=== PATIENT | male | born 1945 | race Caucasian/White ===

== ENCOUNTER 2017-02-02 05:34 | Inpatient (IN) | payer OTHER ==
[2017-01-13 11:52] VITALS: BMI 32.0
--- NOTE | 2017-01-13 12:22 | PAT Medication Instructions ---
Service Date Jan 13, 2017. Current Home Medication List Ascorbic Acid (Vitamin C), 1,000 MG PO QAM Aspirin (Aspirin Ec), 81 MG PO QAM Calcium/Vitamin D (Os-Audi 500 Plus D), 1 TAB PO QAM Cholecalciferol (Vitamin D3), 1 TAB PO QAM Multivitamin (Multivitamin), 1 TAB PO QAM Simvastatin (Zocor), 40 MG PO QAM Medication Instructions For Your Scheduled Surgery - Hold the following medications the morning of surgery: Calcium/Vitamin D (Os-Audi 500 Plus D), 1 TAB PO QAM Cholecalciferol (Vitamin D3), 1 TAB PO QAM Multivitamin (Multivitamin), 1 TAB PO QAM Ascorbic Acid (Vitamin C), 1,000 MG PO QAM - Take the following medications the morning of surgery with a sip of water: Aspirin (Aspirin Ec), 81 MG PO QAM (okay to continue per surgeon) Simvastatin (Zocor), 40 MG PO QAM If you have any questions please call us at [phone] or [phone] or [phone]
[2017-01-13 12:48] LABS: BASO % 0.4 %; BASO ABS # 0.03 K/uL (0-0.2); COMPLETE YES; HEMATOCRIT 41.4 % (42-52); IG% 0.3 %; LYMPH % 24.3 %; LYMPH ABS # 1.94 K/uL (1.2-3.4); MEAN CELL VOLUME 88.8 fL (80-100); MEAN CORPUSCULAR HEMOGLOBIN 31.8 pg (25-34); MEAN CORPUSCULAR HGB CONC 35.7 g/dl (32-36); PLATELET COUNT 196 K/uL (130-400); RED BLOOD COUNT 4.66 M/uL (4.7-6.1); WHITE BLOOD COUNT 7.97 K/uL (4.8-10.8)
[2017-01-13 12:51] LABS: MANUAL MICROSCOPIC REQUIRED? NO; REVIEW REQ? NO; URINE APPEARANCE CLOUDY (CLEAR); URINE BILIRUBIN NEG (NEG); URINE COLOR YELLOW; URINE EPITHELIAL CELL AUTO 0-5 /lpf (0-5); URINE NITRITE NEG (NEG); URINE PH 7.5 (4.5-7.5); URINE SPECIFIC GRAVITY 1.022 (1.000-1.030); UROBILINOGEN NEG (NEG); ZZUR CULT IF INDIC CLEAN CATCH NO
--- NOTE | 2017-01-13 12:52 | DIAGNOSTIC IMAGING REPORT ---
CHEST 2 VIEWS ROUTINE CLINICAL HISTORY: 71 years-old Male presenting with preoperative assessment. TECHNIQUE: PA and lateral views of the chest were obtained. COMPARISON: None. FINDINGS: Cardiomediastinal silhouette normal. Lungs and pleural spaces clear. Degenerative changes of the spine. Upper abdomen normal. IMPRESSION: 1. No acute cardiopulmonary disease. Electronically signed by: Wilian Thorne M.D. 01/13/2017 12:50 PM Dictated Date/Time: 01/13/2017 12:50 PM
[2017-01-13 12:59] LABS: PARTIAL THROMBOPLASTIN RATIO 1.1; PROTHROMBIN TIME (PATIENT) 11.2 SECONDS (9.0-12.0)
[2017-01-13 13:04] LABS: ESTIMATED AVERAGE GLUCOSE 123 mg/dl; HA1C FLAG Normal (Normal)
[2017-01-13 13:44] LABS: BUN/CREATININE RATIO 20.1 (10-20); CALCIUM 9.1 mg/dl (8.5-10.1); CREATININE 0.96 mg/dl (0.60-1.40); POTASSIUM 4.2 mmol/L (3.5-5.1)
--- NOTE | 2017-02-01 12:05 | HISTORY & PHYSICAL EXAMINATION ---
DATE OF ADMISSION: 02/02/2017 CHIEF COMPLAINT: Right knee pain. HISTORY OF PRESENT ILLNESS: The patient is a 71-year-old male with known osteoarthritis about his right knee. He has had previous corticosteroid as well as viscosupplementation injections. He continues to have significant pain and disability with activities of daily living and now desires to proceed with right total knee arthroplasty. PAST MEDICAL HISTORY: Hypercholesterolemia, osteoarthritis, kidney stones. PAST SURGICAL HISTORY: Appendectomy, tonsillectomy, colonoscopy x2, cataract surgery, fibula surgery. MEDICATIONS: Simvastatin 40 mg daily, aspirin 81 mg daily, multivitamin daily, calcium plus D daily, vitamin C with naomy hips daily, Vitamin D3 1000 International Units daily. ALLERGIES: No known drug allergies. SOCIAL HISTORY AND REVIEW OF SYSTEMS: Noncontributory. PHYSICAL EXAMINATION: GENERAL: Well-nourished, well-developed male who appears his stated age. HEENT: Normocephalic, atraumatic, extraocular movements intact, oropharynx pink and moist. NECK: Supple without adenopathy. LUNGS: Clear to auscultation bilaterally. HEART: Regular rate and rhythm. ABDOMEN: Soft, nontender, nondistended. EXTREMITIES: The upper extremities are within normal limits. The right knee has a slight varus alignment. He complains primarily of medial compartment pain. He has range of motion from 0 to 125 degrees. He has mild crepitus with range of motion. X-RAYS: X-rays were reviewed. He has a varus aligned knee. He has near bone on bone arthritis of the medial compartment with medial osteophytes. He has mild osteophyte formation about the patellofemoral joint. ASSESSMENT: Right knee degenerative joint disease. PLAN: Risks versus benefits were discussed. Consent was obtained. The patient's primary care physician is Dr. Griffin from [place]. We will proceed with right total knee arthroplasty upon preoperative workup and medical clearance.
[~2017-02-02] VITALS: Ht 177.8 cm; Wt 100.6 kg
[2017-02-02] VITALS (9 sets, daily range): BP systolic 107–141; BP diastolic 65–76; PULSE 59–90; TEMP 36.5–36.7; O2SAT 93–99; Ht 177.8 cm; Wt 100.6 kg
[~2017-02-02 05:34] MED LIST: ASCA500 PO; ASPI81TA28 PO; CALC500C70 PO; MULT-506 PO; SIMV40TA2 PO; VTMD1000 PO
[2017-02-02] MEDS ORDERED: FAMOTIDINE 20 MG TAB PO SCH (06:00)
[2017-02-02] MEDS ORDERED: CeleBREX 200 MG CAP PO SCH (06:00)
[2017-02-02] MEDS ORDERED: LACTATED RINGER'S 1000ML IV SCH (06:00)
[2017-02-02] MEDS ORDERED: METOCLOPRAMIDE HCL 10 MG TAB PO SCH (06:00)
[2017-02-02] MEDS ORDERED: GABAPENTIN 300 MG CAP PO SCH (06:00)
[2017-02-02] MEDS ORDERED: ACETAMINOPHEN 500 MG TAB PO SCH (06:00)
[2017-02-02] MEDS ORDERED: CEFAZOLIN 2000 MG/60 ML D5W 60 ML IV SCH (06:00)
[2017-02-02] MEDS ORDERED: ROPIVACAINE 5MG/ML 30 ML 150 MG, BUPIVACAINE/EPINEPHR 0.5% MPF 30 ML, KETOROLAC TROMETH... INFIL SCH ×7 (06:00)
[2017-02-02] MEDS ORDERED: DEXAMETHASONE 4 MG TAB PO SCH (06:00)
[2017-02-02] MEDS ORDERED: LACTATED RINGER'S 500 ML IV SCH (06:00)
[2017-02-02] MEDS ORDERED: LACTATED RINGER'S 1000ML 1,000 ML IV SCH (06:00)
[2017-02-02] MEDS ORDERED: BUPIVACAINE 0.25% 30 ML VIAL ONE (06:38)
[2017-02-02] MEDS ORDERED: EpINEphrine INJ 1MG/ML AMP 1 MG/ML AMP ONE (06:38)
[2017-02-02] MEDS ORDERED: BUPIVACAINE 0.5 % 5 MG/1 ML PF 10ML VIAL ONE (06:38)
[2017-02-02] MEDS ORDERED: MIDAZOLAM HCL 1 MG/ML 2ML VIAL ONE (06:51)
[2017-02-02] MEDS ORDERED: FENTANYL CITRATE INJ 50 MCG/1 ML 2 ML VIAL ONE (06:51)
[2017-02-02] MEDS ORDERED: LABETALOL HCL IV 5 MG/ML 20ML IV PRN (07:15)
[2017-02-02] MEDS ORDERED: EpHEDrine SULFATE INJ 50 MG/ML AMP IV PRN (07:15)
[2017-02-02] MEDS ORDERED: ONDANSETRON INJ 2 MG/ML 2 ML VIAL IV PRN ×2 (07:15→09:45)
[2017-02-02] MEDS ORDERED: NALOXONE HCL 0.4 MG/1 ML VIAL/CARP IV PRN (07:15)
[2017-02-02] MEDS ORDERED: FLUMAZENIL 0.1 MG/1 ML 10 ML VIAL IV PRN (07:15)
[2017-02-02] MEDS ORDERED: MEPERIDINE HCL 25 MG/ML CARP IV PRN (07:15)
[2017-02-02] MEDS ORDERED: FENTANYL CITRATE INJ 50 MCG/1 ML 2 ML VIAL IV PRN (07:15)
[2017-02-02] MEDS ORDERED: PHENYLEPHRINE 100MCG/ML 5ML SYR IV PRN (07:15)
[2017-02-02] MEDS ORDERED: HYDROmorphone INJ 2 MG/ML SYR/VIAL IV PRN (07:15)
[2017-02-02] MEDS ORDERED: ATROPINE SULFATE 0.1 MG/ML 5ML SYR IV PRN (07:15)
--- NOTE | 2017-02-02 07:15 | History & Physical Bridge Note ---
H&P Re-Evaluation Bridge Note: I have examined the patient, reviewed the History & Physical and in the interval since the performance of the History & Physical I have noted the following changes of clinical significance: No changes noted
[2017-02-02] MEDS ORDERED: POVIDONE-IODINE OP SOLN 30 ML BTL ONE (07:31)
[2017-02-02] MEDS ORDERED: ORTHO JOINT ANESTHETIC ONE (07:31)
[2017-02-02] MEDS ORDERED: BACITRACIN 50000 UNIT VIAL ONE (07:32)
[2017-02-02] MEDS: TRANEXAMIC ACID INJ 1,000 MG in SODIUM CHLORIDE 0.9% 100ML 100 ML IV SCH ×3 (07:32→10:21)
[2017-02-02] MEDS ORDERED: LIDOCAINE HCL 2% 2 ML VIAL (20MG/ML) ONE (08:10)
[2017-02-02] MEDS ORDERED: PROPOFOL IV EMULSION 10 MG/ML 20 ML VIAL IV ONE (08:10)
[2017-02-02] MEDS ORDERED: PHENYLEPHRINE 100MCG/ML 5ML SYR ONE (08:26)
--- NOTE | 2017-02-02 09:05 | [facility] Post Operative Brief Note ---
Immediate Operative Summary Operative Date Feb 02, 2017. Pre-Operative Diagnosis Right knee degenerative joint disease Post-Operative Diagnosis Right knee degenerative joint disease Procedure(s) Performed Right total knee arthroplasty Surgeon Dr. Roa Administrative Library Assistant Surgeon(s) Aaron Lane PA-C Estimated Blood Loss 10cc Findings oa Specimens A: Right knee bone and tissue Disposition Recovery Room / PACU
[2017-02-02] MEDS ORDERED: ALUMINUM/MAGNESIUM/SIMETH (MAALOX MAX) 30 ML UDC PO PRN (09:45)
[2017-02-02] MEDS ORDERED: OXYCODONE HCL IR 5 MG TAB (IMMEDIATE RELEASE) PO PRN (09:45)
[2017-02-02] MEDS ORDERED: MoRPHine SULFATE 4 MG/ML 1 ML CARP\\VIAL IV PRN (09:45)
[2017-02-02] MEDS ORDERED: MoRPHine SULFATE 2 MG/ML CARP IV PRN (09:45)
[2017-02-02] MEDS ORDERED: BISACODYL 10 MG SUPP PR PRN (09:45)
[2017-02-02] MEDS ORDERED: MAGNESIUM HYDROXIDE SUSP 30 ML UDC PO PRN (09:45)
--- NOTE | 2017-02-02 09:53 | OPERATIVE REPORT ---
DATE OF OPERATION: 02/02/2017 PREOPERATIVE DIAGNOSIS: Osteoarthritis, right knee. POSTOPERATIVE DIAGNOSIS: Osteoarthritis, right knee. PROCEDURE: Right total knee arthroplasty. SURGEON: Dr. Roa. CONCRETE PUDDLER: JANICE Abdi ANESTHESIA: Spinal. COMPLICATIONS: None. IMPLANTS USED: Femoral size 5, tibia size 4, tibial poly 13, and patella size 36. OPERATION AND FINDINGS: Following induction of spinal anesthesia, the patient's right leg was prepped and draped in the usual sterile manner. Limb was exsanguinated with an Esmarch bandage and tourniquet was inflated to 350 mmHg. A longitudinal incision was made anteriorly. Subcutaneous tissue was sharply dissected. Electrocautery was used for hemostasis. Prepatellar bursa was incised and median parapatellar incision was performed. Patella was everted and the knee was flexed. Fat pad was removed to aid in visualization and the anterior and posterior cruciate ligaments were removed. The medial face of the tibia was cleared of soft tissue first with a Bovie and a Myers elevator. This tissue was retracted posteriorly using a blunt Hohmann. A Webster retractor was used to expose the synovium above on the anterior aspect of the femur and this was removed down to bone. The PSI guide was placed on the distal femur and two pins were placed anteriorly and kept in position and two additional pins were placed distally and removed. The distal femoral cutting block was placed in position and the distal femoral cut was used in the +0 setting. Next, the cutting block was removed and the femoral 5 block was placed in the distal end of the femur. Care was taken to ensure appropriate external rotation and feeler gauge was used to ensure no notching would occur. The femoral block was centered on the distal femur and in the medial and lateral direction and was fixed using two bone screws. The gold pins were then removed. The oscillating saw was used to create the bone cuts and the distal femoral cutting block was removed and the reciprocating saw was used to further trim the femoral cuts as well as a deep in the area for the trochlear groove. Next, posterior condyle remnants were removed. Following this, a meniscal clamp and knife were utilized to remove the anterior portion of both medial and lateral meniscus. The proximal tibia PSI guide was placed into position and the proximal tibial cutting guide was screwed into position. The extra medullary alignment guide was utilized to ensure appropriate alignment. The proximal tibia was cut and the proximal tibial cutting block was removed and this bone fragment was removed. The appropriate guide was used to perform the notch cut on the distal femur and a lamina associate software application engineer and a cochlear knife were utilized to finish both medial and lateral meniscectomies to remove any remnants of the posterior or anterior cruciate ligaments. Following this, the distal femoral component was impacted into position and blunt Ej was used to sublux the tibia anteriorly. The proximal tibia was sized and a 4 tibial tray was chosen as the size to be used. This was put into position and appropriate external rotation and a double check with extramedullary alignment guide was performed. The canal for the tibial stem was prepared first with a 17 mm drill and then the punch and a mallet and the trial tibial poly was placed. A 13 was chosen the size to be used. It was brought to extension and the patella was prepared with the patellar reamer. A 36 component was chosen the size to be used. The trial component was placed and knee was taken through a full range of motion and there was found to be no lateral subluxation of the tibia. No lateral release was required. The trials were all removed. The final components were obtained and assembled. Cement was mixed. The knee was thoroughly irrigated and the ortho mix was injected about the knee joint. The final components were cemented into position. After thoroughly suctioning and drying the bone ends, all excess cement was removed. The knee was held in extension while the cement hardened. The wound was irrigated and closed over a Hemovac drain. #1 Vicryl was used to close the extensor mechanism. Subcutaneous tissues closed using 0 Dexon. Skin was closed with tatum. Sterile dressing of Adaptic, 4 x 4's, sterile Webril, and Bert was applied. The patient tolerated the procedure well. Due to the complex nature of the procedure, the entire surgery was performed with the operational assistance of JANICE Abdi. The vet assistant, under direct supervision, was involved in the actual performance of all aspects of the surgical procedure including hemostasis, tissue retraction and incision, instrument management, patient positioning, and wound closure. DISPOSITION: Recovery room stable. I attest to the content of the Intraoperative Record and any orders documented therein. Any exception s are noted below.
--- NOTE | 2017-02-02 10:14 | DIAGNOSTIC IMAGING REPORT ---
RIGHT KNEE 1 OR 2 VIEWS ROUTINE CLINICAL HISTORY: 71 years-old Male presenting with postop right knee. TECHNIQUE: Frontal and lateral views the right knee were obtained. COMPARISON: None. FINDINGS: Postsurgical changes of total right knee arthroplasty with patellar resurfacing. Expected soft tissue and intra-articular gas. A surgical drain is in place. No acute fracture or malalignment. IMPRESSION: Expected postsurgical changes status post total right knee arthroplasty with patellar resurfacing. Electronically signed by: Wilian Thorne M.D. 02/02/2017 10:13 AM Dictated Date/Time: 02/02/2017 10:12 AM
--- NOTE | 2017-02-02 10:14 | Anesthesiology Progress Note ---
Anesthesia Post Op Note Date & Time Feb 02, 2017 at 10:14 Vital Signs Pain Intensity: 0 Vital Signs Past 12 Hours Date Time Temp Pulse Resp B/P (MAP) Pulse Ox O2 Delivery O2 Flow Rate FiO2 02/02/17 10:05 36.0 72 18 116/78 98 Nasal Cannula 2 02/02/17 09:55 75 12 121/71 99 Nasal Cannula 2 02/02/17 09:45 78 14 127/70 100 Nasal Cannula 2 02/02/17 09:39 36.2 87 16 126/67 94 Nasal Cannula 2 02/02/17 06:12 36.7 59 20 141/72 98 Room Air Notes Mental Status: alert / awake / arousable, participated in evaluation Pt Amnestic to Procedure: Yes Nausea / Vomiting: adequately controlled Pain: adequately controlled Airway Patency, RR, SpO2: stable & adequate BP & HR: stable & adequate Hydration State: stable & adequate Neuraxial Anesthesia: was administered, sensory block is resolving Anesthetic Complications: no major complications apparent
[2017-02-02] MEDS: ACETAMINOPHEN 500 MG TAB PO SCH ×2 (13:15→21:36)
[2017-02-02] MEDS: D5W AND 1/2NSS + 20MEQ KCL 1,000 ML IV SCH ×2 (13:15→21:36)
[2017-02-02] MEDS: CEFAZOLIN IV 2,000 MG in DEXTROSE 5% 50ML 50 ML IV SCH ×2 (15:47→23:49)
[2017-02-02] MEDS: CeleBREX 200 MG CAP PO SCH (20:41)
[2017-02-02] MEDS: ASPIRIN 81 MG ECTAB PO SCH (20:41)
[2017-02-02] MEDS: DOCUSATE SODIUM 100 MG CAP PO SCH (20:41)
[2017-02-03 03:54] VITALS: BP 126/73; PULSE 75; TEMP 36.5; O2SAT 95
[2017-02-03] MEDS: ACETAMINOPHEN 500 MG TAB PO SCH ×3 (05:36→21:20)
[2017-02-03 06:03] LABS: HEMATOCRIT 38.5 % (42-52); MEAN CELL VOLUME 88.5 fL (80-100); MEAN CORPUSCULAR HEMOGLOBIN 31.3 pg (25-34); MEAN CORPUSCULAR HGB CONC 35.3 g/dl (32-36); MEAN PLATELET VOLUME 9.6 fL (7.4-10.4); PLATELET COUNT 203 K/uL (130-400); RED BLOOD COUNT 4.35 M/uL (4.7-6.1); WHITE BLOOD COUNT 23.49 K/uL (4.8-10.8)
[2017-02-03 06:51] LABS: BUN/CREATININE RATIO 18.3 (10-20); CALCIUM 8.3 mg/dl (8.5-10.1); CREATININE 0.99 mg/dl (0.60-1.40); POTASSIUM 4.1 mmol/L (3.5-5.1)
[2017-02-03] MEDS: D5W AND 1/2NSS + 20MEQ KCL 1,000 ML IV SCH (07:47)
[2017-02-03] MEDS: PANTOprazole SOD 40 MG TAB PO SCH (07:48)
[2017-02-03 08:19] VITALS: BP 154/75; PULSE 80; TEMP 36.5; O2SAT 99
[2017-02-03] MEDS: DOCUSATE SODIUM 100 MG CAP PO SCH ×2 (08:47→21:21)
[2017-02-03] MEDS: CeleBREX 200 MG CAP PO SCH ×2 (08:48→21:20)
[2017-02-03] MEDS: ASPIRIN 81 MG ECTAB PO SCH ×2 (08:48→21:21)
[2017-02-03] MEDS: SIMVASTATIN 40 MG TAB PO SCH (08:50)
[2017-02-03] MEDS: MULTIVITAMIN TAB PO SCH (08:50)
[2017-02-03] MEDS: TRAMADOL HCL 50 MG TAB PO PRN ×2 (08:56→21:20)
--- NOTE | 2017-02-03 08:57 | Orthopedic Progress Note ---
Orthopedic Progress Note Date of Service Feb 03, 2017. Subjective Post OP Day: 1 Reports: feeling well, pain controlled w PO medications, Denies: chest pain, SOB , nausea / vomiting, light headedness Objective calves soft nontender, N/V intact, dressing C/D/I, A&O x3, toes mobile Date Time Temp Pulse Resp B/P (MAP) Pulse Ox O2 Delivery O2 Flow Rate FiO2 02/03/17 08:19 36.5 80 18 154/75 (101) 99 Room Air 02/03/17 03:54 36.5 75 16 126/73 (90) 95 Room Air 02/02/17 23:45 Room Air 02/02/17 22:55 36.6 73 16 113/66 (82) 93 Room Air 02/02/17 19:25 36.7 77 16 112/65 (81) 94 Room Air 02/02/17 15:50 97 Room Air 02/02/17 14:59 36.7 87 17 107/67 (80) 97 Nasal Cannula 1.0 02/02/17 13:19 36.5 85 141/72 (95) 97 Nasal Cannula 2.0 02/02/17 12:27 90 16 122/71 (88) 99 Nasal Cannula 2.0 02/02/17 11:33 89 18 125/75 (92) 97 Room Air 02/02/17 11:05 36.7 69 16 132/76 (94) 98 Nasal Cannula 8.0 02/02/17 10:30 Nasal Cannula 02/02/17 10:15 67 16 109/65 99 Nasal Cannula 2 02/02/17 10:05 36.0 72 18 116/78 98 Nasal Cannula 2 02/02/17 09:55 75 12 121/71 99 Nasal Cannula 2 02/02/17 09:45 78 14 127/70 100 Nasal Cannula 2 02/02/17 09:39 36.2 87 16 126/67 94 Nasal Cannula 2 Laboratory Results 24 Hours: Test 02/03/17 05:51 Hematocrit 38.5 % Hemoglobin 13.6 g/dL Assessment & Plan Assessment: POD 1 s/p Right TKA Plan: PT/OT Planning for home with OPPT Inhouse Planning Pain Management: Celebrex, Ultram, Morphine, PO Tylenol, Oxy IR DVT Prophylaxis: TEDs, SCDs, ASA Discharge Planning Discharge Planning: home with oppt
--- NOTE | 2017-02-03 09:04 | Discharge Instructions ---
Discharge Instructions Date of Service Feb 03, 2017. Admission Reason for Admission: Right Knee Osteoarthritis Discharge Discharge Diagnosis / Problem: Right Knee Djd Discharge Goals Goal(s): Decrease discomfort, Improve function Activity Recommendations Activity Limitations: per Instructions/Follow-up section Weightbearing Status: Right weightbearing (as tolerated) . Instructions / Follow-Up Instructions / Follow-Up ACTIVITY RECOMMENDATIONS: SELF CARE INSTRUCTIONS AFTER TOTAL KNEE REPLACEMENT A. You may need to continue a physical therapy program after discharge from the hospital. There are several options available to you. Your doctor will assist you in selecting the best one for you. 1. An out-patient facility 2 to 3 times a week for therapy or home therapy. 2. Continue working on all exercises taught to you in the hospital. Your goals should be to increase bending of your knee to 90 degrees and beyond and to fully straighten your knee. B. You may progress at your own pace from walking with a walker or crutches to a cane; then to no assistive devices. C. Make walking a part of your daily routine. Be up as much as comfortable with rest periods throughout the day. Rest with leg elevation is very important. Use the ice wrap frequently for the first 3-4 weeks. D. There are no restrictions on activities. You may ride in a car, shop, participate in can solderer and all social activities. E. Wear the long elastic stockings (EDEL hose) 20 hours a day for 2 weeks after surgery. They can be removed several times a day for laundering and for a bath. F. You may shower, no tub baths until cleared by your doctor. SPECIAL CARE INSTRUCTIONS: VERY IMPORTANT TO READ AND REVIEW A. There are a few signs you need to watch for after you are home. Call [facility] if you notice any of the followin. Increased severe knee pain. Some pain is expected especially when you exercise. 2. Increased swelling in your leg or knee; pain or swelling of the calf muscle in either lower leg. 3. Any fluid drainage from the incision. 4. Shortness of breath or chest pain. B. Please call [facility] at if you have any concerns or questions about your operation or recovery. The doctor or his nurse will return your call promptly. C. You must take antibiotics before dental work, bladder, bowel or other surgery. Your doctor will provide you with a permanent care to carry describing this precaution. IMPORTANT: * REMEMBER TO TAKE ASPIRIN, 81 MG, TWICE DAILY FOR 4 WEEKS UNLESS OTHERWISE DIRECTED. THIS IS YOUR BLOOD THINNER. * HIGH RISK PATIENTS MAY BE PRESCRIBED A STRONGER BLOOD THINNER. THIS WILL BE PROVIDED AT DISCHARGE. * CALL IF INCREASED PAIN, REDNESS, DRAINAGE OR FEVER GREATER THAT 101. * WEAR EDEL HOSE 20 HOURS PER DAY FOR 2 WEEKS. * Silverlon- This is a large adhesive bandage that contains silver ions. This helps your incision heal by fighting off bacteria and protecting it from the outside environment. You are permitted to shower with this dressing. This will remain on your incision for 7 days and then should be removed. Some visible blood or drainage through the dressing window is normal. If there is significant drainage or leaking noted before the 7 days notify your doctor's office immediately. Once removed, keep incision clean and dry. If there is any drainage or redness noted, please call your surgeon. You also have the Zipline closure system under the Silverlon dressing. This will remain on for 2 weeks. This will be removed in the office. You may keep an ABD dressing sponge over the wound to protect it and will keep your clothes from catching on the zip closure. . FOLLOW UP VISIT: If appointment is not already scheduled: Please call [facility] to make a follow-up appointment for 2 weeks after your surgery at . Current Hospital Diet Patient's current hospital diet: Regular Diet Discharge Diet Recommended Diet: Regular Diet Procedures Procedures Performed: Right total knee arthroplasty Pending Studies Studies pending at discharge: no Laboratory Results Hemoglobin A1c Test 01/13/17 12:26 Range/Units Estimated Average Glucose 123 mg/dl Hemoglobin A1c 5.9 H 4.5-5.6 % Medical Emergencies . Who to Call and When: Medical Emergencies: If at any time you feel your situation is an emergency, please call 911 immediately. . Non-Emergent Contact Non-Emergency issues call your: Surgeon Call Non-Emergent contact if: temperature is above 101.5, your pain is not controlled, your pain is worsening, wound has increased drainage, wound has increased redness . "Provider Documentation" section prepared by Aaron Lane. . VTE Core Measure Inpt VTE Proph given/why not?: Other Anticoagulation, T.E.D. Stockings, SCD's [place] Drug Monitoring Program Search Results: patient reviewed within database, no issues identified
[2017-02-03 11:18] VITALS: BP 136/72; PULSE 72; TEMP 36.4; O2SAT 97
--- NOTE | 2017-02-03 13:37 | Anesthesiology Progress Note ---
Anesthesia Post Op Note Date & Time Feb 03, 2017 at 13:36 Vital Signs Pain Intensity: 0.0 Vital Signs Past 12 Hours Date Time Temp Pulse Resp B/P (MAP) Pulse Ox O2 Delivery O2 Flow Rate FiO2 02/03/17 11:18 36.4 72 17 136/72 (93) 97 Room Air 02/03/17 08:19 36.5 80 18 154/75 (101) 99 Room Air 02/03/17 07:50 Room Air 02/03/17 03:54 36.5 75 16 126/73 (90) 95 Room Air Notes Mental Status: alert / awake / arousable, participated in evaluation Pt Amnestic to Procedure: Yes Nausea / Vomiting: adequately controlled Pain: adequately controlled Airway Patency, RR, SpO2: stable & adequate BP & HR: stable & adequate Hydration State: stable & adequate Neuraxial Anesthesia: was administered, sensory block resolved Anesthetic Complications: no major complications apparent
[2017-02-03 16:10] VITALS: BP 136/74; PULSE 70; TEMP 36.7; O2SAT 98
[2017-02-03 22:59] VITALS: BP 135/76; PULSE 70; TEMP 36.6; O2SAT 98
[2017-02-04] MEDS: ACETAMINOPHEN 500 MG TAB PO SCH (05:08)
[2017-02-04 06:34] VITALS: BP 150/87; PULSE 78; TEMP 36.7; O2SAT 98
[2017-02-04] MEDS: SIMVASTATIN 40 MG TAB PO SCH (07:32)
[2017-02-04] MEDS: DOCUSATE SODIUM 100 MG CAP PO SCH (07:32)
[2017-02-04] MEDS: MULTIVITAMIN TAB PO SCH (07:32)
[2017-02-04] MEDS: PANTOprazole SOD 40 MG TAB PO SCH (07:32)
[2017-02-04] MEDS: ASPIRIN 81 MG ECTAB PO SCH (07:32)
[2017-02-04] MEDS: CeleBREX 200 MG CAP PO SCH (07:34)
--- NOTE | 2017-02-04 08:58 | Orthopedic Progress Note ---
Orthopedic Progress Note Date of Service Feb 04, 2017. Subjective Post OP Day: 2 Reports: feeling well, Denies: complaints Additional Notes: Doing well, no acute issues overnight, pain well controlled. Objective NAD, AOx3 RLE: NVSI +EHL/FHL/TA/GS SILT grossly, CR< 2 sec, +2 DP pulse Compartments soft, dressing CDI Date Time Temp Pulse Resp B/P (MAP) Pulse Ox O2 Delivery O2 Flow Rate FiO2 02/04/17 06:34 36.7 78 16 150/87 (108) 98 Room Air 02/03/17 23:03 Room Air 02/03/17 22:59 36.6 70 16 135/76 (95) 98 Room Air 02/03/17 16:10 36.7 70 17 136/74 (94) 98 Room Air 02/03/17 15:10 Room Air 02/03/17 11:18 36.4 72 17 136/72 (93) 97 Room Air Assessment & Plan Assessment: POD 2 s/p Right TKA Plan: WBAT RLE PT/OT DVT PPX Pain controlled am labs DC home with OPPT Inhouse Planning Pain Management: Celebrex, Ultram, Morphine, PO Tylenol, Oxy IR DVT Prophylaxis: TEDs, SCDs, ASA Discharge Planning Discharge Planning: home with oppt
[2017-02-04] MEDS ORDERED: RXC5 PO (09:29)
[2017-02-04] MEDS ORDERED: CLB200 PO (09:29)
[2017-02-04] MEDS ORDERED: ACET-24 PO (09:29)
[2017-02-04] MEDS ORDERED: ASPEC81 PO (09:29)
[2017-02-04] MEDS ORDERED: ONDA8TAB6 PO (09:29)
[2017-02-04 11:52] VITALS: BP 150/87; PULSE 78; TEMP 36.7; O2SAT 98
[2017-02-04] MEDS: TRAMADOL HCL 50 MG TAB PO PRN (13:03)
--- NOTE | 2017-02-10 12:11 | Discharge Summary ---
Orthopedic Discharge Summary Admission Date/Reason Feb 02, 2017 at 07:05 Right Knee Osteoarthritis. Discharge Date/Disposition Feb 04, 2017 Home Diagnosis Principal Diagnosis: Right Knee Osteoarthritis Secondary Diagnoses/Problems: Hypercholesterolemia, osteoarthritis, kidney stones. Procedure(s) Performed Right TKA Medication Reconciliation New Medications: Ondansetron Hcl (Zofran) 8 Mg Tab 8 MG PO Q8 PRN for Nausea, #30 TAB Acetaminophen (Sb Non-Aspirin Extra Stre) 500 Mg Tab 1000 MG PO Q8H, #120 TAB Aspirin (Aspirin EC Low Dose) 81 Mg Ectab 81 MG PO BID for 30 Days Celecoxib (Celebrex) 200 Mg Cap 200 MG PO BID, #60 CAP Oxycodone HCl (Oxycodone HCl) 5 Mg Tab 5-10 MG PO Q4H PRN for Pain, #60 TAB Continued Medications: Ascorbic Acid (Vitamin C) 500 Mg Tab 1000 MG PO QAM Calcium/Vitamin D (Os-Audi 500 Plus D) Tab 1 TAB PO QAM, TAB pt med list reads 600 mg w/D Cholecalciferol (Vitamin D3) 1,000 Inter.unit Tab 1 TAB PO QAM Multivitamin (Multivitamin) Tab 1 TAB PO QAM, TAB Simvastatin (Zocor) 40 Mg Tab 40 MG PO QAM, TAB Discontinued Medications: Aspirin (Aspirin Ec) 81 Mg Tab 81 MG PO QAM Admission Physical Exam As per Admitting History & Physical. Hospital Course The Patient had an uneventful hospital course. Labs remained stable- lowest hemoglobin recorded: 13.6 . Pain controlled on oral medications. Participated in PT with ambulation distance of 800 feet. ROM of operative knee reached 100 degrees. Drainage output totaled 570 cc prior to discontinuation. Patient did have a reported bowel movement. Incision remained clean/dry/intact. DVT prophylaxis with Aspirin EC 81mg BID x 30 days/ Farhad stockings. Patient discharged home with Outpatient PT in stable condition. Please refer to daily progress notes for further details. Discharge Instructions Please refer to the electronic Patient Visit Report (Discharge Instructions) for additional information.
== END 2017-02-04 13:29 | disposition home or self-care (01) | DRG 470 ==
LOC: C.ACU 05:34 → C.3E 07:05 → ENRESERV 10:07
PROC: 0SRC0J9 Replacement of Right Knee Joint with Synthetic Substitute, Cemented, Open Approach (ICD-10-PCS; principal; 2017-02-02 08:00)
DX: M17.11 Unilateral primary osteoarthritis, right knee (principal); E78.00 Pure hypercholesterolemia, unspecified; Z87.442 Personal history of urinary calculi; Z79.82 Long term (current) use of aspirin; Z79.899 Other long term (current) drug therapy